=== PATIENT | female | born 1980 | race American Indian/Alaskan Native ===

== ENCOUNTER 2020-06-06 15:18 | Outpatient (CLI) | payer BC ==
--- NOTE | 2020-06-06 16:19 | XRay Report ---
CLINICAL DATA: NECK PAIN TECHNICAL DATA: AP, lateral, and odontoid views of the cervical spine were obtained. FINDINGS: The vertebral body heights, disc spaces, and alignment are well within normal limits. There is no linsey dence of fracture. No prevertebral soft tissue swelling is evident. IMPRESSION: Normal alignment without evidence of fracture. Signer Name: Ciro Mcwilliams MD Signed: 06/06/2020 4:14 PM Workstation Name: [id number]
== END 2020-06-06 15:19 | disposition home or self-care (01) ==
LOC: SPVIMAG 15:18
PROVIDERS: ATTEND Internal Medicine
DX: M54.2 Cervicalgia (principal)
CPT/HCPCS: 72040

== ENCOUNTER 2020-11-26 08:21 | Outpatient (CLI) | payer BC ==
--- NOTE | 2020-11-26 09:51 | Mammography Report ---
BILATERAL DIGITAL SCREENING MAMMOGRAM WITH CAD HISTORY: Screening mammogram. TECHNIQUE: Routine digital mammographic imaging performed. This examination was interpreted with ricardo barron benefit of Computer-aided Detection analysis. COMPARISON: 10/19/2019. FINDINGS: Breast Density: heterogeneously dense breast parenchymal pattern which somewhat lessens the sensitivi ty of the evaluation. Digital CC and MLO views demonstrate a right inferior anterior breast asymmetry which is seen on the MLO view only. No suspicious findings within the left breast. IMPRESSION: Right inferior anterior breast asymmetry which is seen only on the MLO view. Additional mammographic views (spot MLO, full ML) are recommended for further evaluation with possible subsequent targeted u ltrasound. BIRADS 0-Incomplete: Needs additional imaging evaluation NOTE: WE WILL RECALL THE PATIENT FOR THIS ADDITIONAL EVALUATION. FURTHER INFORMATION: According to the [employer], yearly mammograms are recommend ed starting at age 40 and continuing as long as a woman is in good health. Clinical Breast Exams shou ld be part of a periodic health exam-about every 3 years for women in their 20s and 30s and every yea r for women 40 and over. Breast self exam is an option for women starting in their 20s. Any breast ch carolin noted on a breast self exam should be reported promptly to the patient's healthcare provider. Br east MRI is recommended for women with an approximately 20-25% or greater lifetime risk of breast can cer, including women with a strong family history of breast or ovarian cancer and women who have been treated for Hodgkin's disease. A negative Mammography report should not discourage follow up or biopsy of a clinically significant f inding and/or abnormality. Dense breast tissue may obscure small neoplasms. The patient will be entered into a reminder system with a target due date for the next screening mamm ogram. Signer Name: Enoc Cooley MD Signed: 11/26/2020 9:47 AM Workstation Name: [id number]
== END 2020-11-26 08:22 | disposition home or self-care (01) ==
LOC: SPVWC 08:21
PROVIDERS: ATTEND Obstetrics & Gynecology
DX: Z12.31 Encounter for screening mammogram for malignant neoplasm of breast (principal)
CPT/HCPCS: 77067